=== PATIENT | male | born 1955 | race Caucasian/White ===

== ENCOUNTER 2019-04-01 10:02 | Emergency (ER) | payer BC ==
[2019-04-01] MEDS ORDERED: Tetan/Diph/Pertus SYR(Tdap)* 0.5 ML SYR(BOOSTRIX) use SYR IM ONE ×2 (12:10→12:19)
--- NOTE | 2019-04-01 12:10 | UC ---
Laceration HPI - HPI Summary HPI Summary: Pt presents with c/o laceration of left mid, posterior arm. Pt was using a dining chair seat cushion trimmer and lost control of bryan and cut left forearm. Pt unsure of last tetanus. - History Of Current Complaint Stated Complaint: LT ARM LAC Time Seen by Provider: 04/01/19 12:05 Hx Obtained From: Patient Laceration Location: Arm - left mid posterior Mechanism Of Injury: Sharp Trauma Onset/Duration: Sudden Onset Severity: Mild Aggravating Factors: Position, Movement Related History: Dominant Hand Right PMH/Surg Hx/FS Hx/Imm Hx Previously Healthy: Yes - Family History Known Family History: Positive: Cardiac Disease - Social History Occupation: Employed Full-time Lives: With Family Smoking Status (MU): Current Every Day Smoker Type: Cigarettes Have You Smoked in the Last Year: Yes - Immunization History Hx Tetanus, Diphtheria Vaccination: Yes Vaccination Up to Date: No Review of Systems All Other Systems Reviewed And Are Negative: Yes Constitutional: Positive: Negative Skin: Positive: Other - laceration Eyes: Positive: Negative ENT: Positive: Negative Respiratory: Positive: Negative Cardiovascular: Positive: Negative Gastrointestinal: Positive: Negative Genitourinary: Positive: Negative Motor: Positive: Negative Neurovascular: Positive: Negative Musculoskeletal: Positive: Myalgia - at laceration site Neurological: Positive: Negative Psychological: Positive: Negative Is Patient Immunocompromised?: No Physical Exam Triage Information Reviewed: Yes Appearance: Well-Appearing Vital Signs Reviewed: Yes Eye Exam: Normal ENT Exam: Normal ENT: Positive: Hearing grossly normal Dental Exam: Normal Neck exam: Normal Respiratory: Positive: No respiratory distress Musculoskeletal Exam: Normal Musculoskeletal: Positive: Strength Intact, ROM Intact Neurological Exam: Normal Neurological: Positive: Muscle Tone Normal Psychological Exam: Normal Skin Exam: Other - laceration left mid, posterior forearm Laceration Repair - Laceration Repair 1 Description: Irregular Laceration Size After Repair: Length (cm) - 6.5, Width (mm) - 5, Depth (mm) - 4 Modified For Repair: No Type Injection: Local Anesthesia Used: 1.0% Lido Cleansing Completed Via Routine Prep: Yes Irrigation With Pressure Irrigation Device: Yes Closure Material: Sutures - 11 sutre of 4-0 prolene simple interrupted Closure Method: Single Layer Suture Of: Skin Suture Type: Prolene Laceration Course/Dx - Differential Dx - Laceration/Wound Differental Diagnoses: Laceration - Diagnosis Provider Diagnosis: Laceration of left upper arm without complication Discharge - Sign-Out/Discharge Documenting (check all that apply): Patient Departure All imaging exams completed and their final reports reviewed: No Studies - Discharge Plan Condition: Stable Disposition: HOME Prescriptions: Cephalexin CAP* [Keflex 500 CAP*] 500 mg PO Q8H #21 cap Patient Education Materials: Care For Your Stitches (DC), Laceration (ED) Referrals: Gregorio Bailey MD [Primary Care Provider] - Additional Instructions: You may follow up with your PCP in 10-14 days to have sutures removed or you may have them removed here with in that time frame. Plese watch for signs or symptoms of infections that include but is not limited to increased redness, fever, chills, purulent discharge and/or swelling. - Billing Disposition and Condition Condition: STABLE Disposition: Home - Attestation Statements Provider Attestation: Per institutional requirements, I have reviewed the chart, however, I was not consulted specifically or made aware of this patient by the midlevel provider. I did not personally evaluate, interact with , or disposition this patient.
== END 2019-04-01 12:40 | disposition home or self-care (01) ==
LOC: UCCORT 10:02
DX: S51.812A Laceration without foreign body of left forearm, initial encounter (principal); W29.3XXA Contact with powered garden and outdoor hand tools and machinery, initial encounter; Y93.H2 Activity, gardening and landscaping; Y92.9 Unspecified place or not applicable; Z23 Encounter for immunization; F17.210 Nicotine dependence, cigarettes, uncomplicated
CPT/HCPCS: 12002; 90471; 90715; 99202; G0463

== ENCOUNTER 2019-04-12 10:47 | Emergency (ER) | payer BC ==
--- OUTSIDE RECORDS SUMMARY | 2019-04-12 10:54 | XMS REPORT | Continuity of Care Document ---
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 Social History Type Date Description Comments Sex Unknown Tobacco Use Start: Unknown Current Cigarette Smoker 2 Packs Daily Smoking Status Reviewed: 04/08/19 Current Cigarette Smoker 2 Packs Daily ETOH Use Uses Alcohol Daily Allergies, Adverse Reactions, Alerts Active Allergies Reaction Severity Comments Date NKDA 10/06/2018 Inactive Allergies Aspirin 11/21/2017 Medications Active Medications SIG Qnty Indications Ordering Date Provider Aspirin Adult Low 1 by mouth Unknown Strength every day 81mg Tablets DR Bui Calcium 1 by mouth 90tabs Silvio Murray 80mg every day M., MQuinton, FACC Tablets Lisinopril 1 by mouth 90tabs Silvio Murray 5mg Tablets every day M., MQuinton, FACC Metoprolol Tartrate Take One Tablet 60tabs Silvio Murray 25mg By Mouth Twice M., MGauravDGaurav, FACC Tablets A Day Nitrostat 1 tab sl every Unknown 0.4mg Tablets Sub 5 min x3 chest pain Levocetirizine 1 by mouth Unknown Dihydrochloride every day 5mg Tablets Cephalexin Q8HRS Borges-Gugerty, 500mg Capsules Radha Lucas NP Immunizations Description No Information Available Vital Signs Date Vital Result Comment 04/08/2019 9:11am BP Systolic Sitting Left Arm 136 mmHg BP Diastolic Sitting Left Arm 65 mmHg Heart Rate 67 /min Respiratory Rate 18 /min Height 72 inches 6'0" Weight 189.00 lb BMI (Body Mass Index) 25.6 kg/m2 BSA (Body Surface Area) 2.08 m2 [place] body weight in kilograms 81 kg O2 % BldC Oximetry 96 % 10/06/2018 10:37am BP Systolic Sitting Right Arm 132 mmHg BP Diastolic Sitting Right Arm 76 mmHg Heart Rate 73 /min Respiratory Rate 18 /min Height 72 inches 6'0" Weight 200.00 lb BMI (Body Mass Index) 27.1 kg/m2 BSA (Body Surface Area) 2.13 m2 [place] body weight in kilograms 81 kg O2 % BldC Oximetry 96 % Ora Results Description No Information Available Procedures Date Code Description Status 04/08/2019 42545 EKG-Tracing And Report Completed Medical Devices Description No Information Available Encounters Type Date Location Provider Dx Diagnosis Office Visit 04/08/2019 Cardiology Office Zoran Monsalve MD I25.10 Athscl heart 9:15a disease of [place] coronary artery w/o ang pctrs I73.9 Peripheral vascular disease, unspecified E78.2 Mixed hyperlipidemia I10 Essential (primary) hypertension Assessments Date Code Description Provider 04/08/2019 I25.10 Atherosclerotic heart disease of [place] coronary Zoran Monsalve MD artery with 04/08/2019 I73.9 Peripheral vascular disease, unspecified Zoran Monsalve MD 04/08/2019 E78.2 Mixed hyperlipidemia Zoran Monsalve MD 04/08/2019 I10 Essential (primary) hypertension Zoran Monsalve MD Plan of Treatment Future Appointment(s):10/09/2019 10:00 am - Angely Vernon PA at [facility]/08/2019 - Zoran Monsalve MDI25.10 Atherosclerotic heart disease of [place] coronary artery withComments:Chronic stable CAD. No signs or symptoms of ischemia. On medical therapy. EF preserved on last echo .9 Peripheral vascular disease, unspecifiedComments:No claudications. Smoking cessation again discussed and importance [id number] Mixed hyperlipidemiaComments:On statin. No side effects reported. Well controlled. Continue statin. LDL in December 59 mg/dlI10 Essential (primary) hypertensionComments :Well controlled. No changes.AllFollow up:6 months. Sooner appt if symptoms arise. Functional Status Functional Condition Comment Date Status Independent with all ADL's Active Mental Status Description No Information Available Referrals Description No Information Available
[2019-04-12 11:14] VITALS: BP 149/77
--- NOTE | 2019-04-12 11:29 | UC ---
HPI Wound/Suture Re-check - HPI Summary HPI Summary: Pt presents with removal of sutures from left forearm that were placed here 10 days ago. - History Of Current Complaint Chief Complaint: UCSkin Stated Complaint: SUTURE REMOVAL Time Seen by Provider: 04/12/19 10:52 Hx Obtained From: Patient Onset/Duration: Sudden Onset, Resolved Severity: Mild Pain Intensity: 0 - Allergies/Home Medications Allergies/Adverse Reactions: Allergies Allergy/AdvReac Type Severity Reaction Status Date / Time No Known Allergies Allergy Verified 04/12/19 10:57 Home Medications: Home Medications Aspirin [Aspir-Low] 81 mg PO QAM 04/12/19 [History Confirmed 04/12/19] Atorvastatin* [Lipitor*] 80 mg PO QPM 04/12/19 [History Confirmed 04/12/19] Levocetirizine Dihydrochloride [Xyzal] 5 mg PO QPM 04/12/19 [History Confirmed 04/12/19] Lisinopril [Prinivil] 5 mg PO QAM 04/12/19 [History Confirmed 04/12/19] Metoprolol Tartrate TAB* [Lopressor TAB*] 25 mg PO BID 04/12/19 [History Confirmed 04/12/19] Nitroglycerin 0.4 mg SL SEE INSTRUCTIONS PRN 04/12/19 [History Confirmed ] PMH/Surg Hx/FS Hx/Imm Hx Previously Healthy: Yes - Surgical History Surgical History: None - Family History Known Family History: Positive: Cardiac Disease - Social History Occupation: Employed Full-time Lives: With Family Alcohol Use: Daily Substance Use Type: None Smoking Status (MU): Heavy Every Day Tobacco Smoker Type: Cigarettes Have You Smoked in the Last Year: Yes - Immunization History Most Recent Tetanus Shot: 04/01/19 Hx Tetanus, Diphtheria Vaccination: Yes Vaccination Up to Date: No Review of Systems All Other Systems Reviewed And Are Negative: Yes Skin: Positive: Other - sutures intact. Eyes: Positive: Negative ENT: Positive: Negative Respiratory: Positive: Negative Cardiovascular: Positive: Negative Gastrointestinal: Positive: Negative Genitourinary: Positive: Negative Motor: Positive: Negative Neurovascular: Positive: Negative Musculoskeletal: Positive: Negative Neurological: Positive: Negative Psychological: Positive: Negative Is Patient Immunocompromised?: No Physical Exam Triage Information Reviewed: Yes Appearance: Well-Appearing Vital Signs: Initial Vital Signs Temp 97.5 F 04/12/19 11:06 Pulse 59 04/12/19 11:06 Resp 18 04/12/19 11:06 BP 149/77 04/12/19 11:06 Pulse Ox 100 04/12/19 11:06 Vital Signs Reviewed: Yes Eye Exam: Normal ENT: Positive: Hearing grossly normal Dental Exam: Normal Neck exam: Normal Respiratory: Positive: No respiratory distress Musculoskeletal Exam: Normal Neurological Exam: Normal Psychological Exam: Normal Skin Exam: Other - 11 sutures intact no s/sx of infection Course/Dx - Course Course Of Treatment: wound healing well, 11 sutures removed steri strips placed for continued laceration healing - Differential Dx - Laceration/Wound Differential Diagnoses: Healing Wound, Suture Removal - Diagnosis Provider Diagnosis: Encounter for removal of sutures Discharge - Sign-Out/Discharge Documenting (check all that apply): Patient Departure All imaging exams completed and their final reports reviewed: No Studies - Discharge Plan Condition: Stable Disposition: HOME Patient Education Materials: Steristrips (ED), Stitches Removal (ED) Referrals: Gregorio Bailey MD [Primary Care Provider] - - Billing Disposition and Condition Condition: STABLE Disposition: Home
== END 2019-04-12 11:31 | disposition home or self-care (01) ==
LOC: UCCORT 10:47
DX: Z48.02 Encounter for removal of sutures (principal); F17.210 Nicotine dependence, cigarettes, uncomplicated